=== PATIENT | female | born 1965 | race Caucasian/White ===

== ENCOUNTER 2023-11-19 12:06 | Day surgery (SDC) | payer MEDICARE, OTHER ==
[~2023-11-19] VITALS: Ht 162.6 cm; Wt 72.0 kg
[~2023-11-19 12:06] MED LIST: BECL10.6 INH; DICY10CA88 PO; DULO-31 PO; HYDR-3972; IBUP-1985 PO; LORA10TA7 PO; MELO-102 PO; METO25TA6 PO; MULT-1085 PO; PANT40TA54 PO; TIZA-205 PO; TRAZ-256 PO; [UNRECOGNIZED DRUG - CODE]
[2023-11-19] MEDS ORDERED: morphine 10mg/ml inj. ONE (13:19)
[2023-11-19] MEDS ORDERED: midazolam 1 mg/ML 2ml injection ONE (13:19)
[2023-11-19 13:24] VITALS: BP 142/82; PULSE 73; RESP 12
[2023-11-19 13:50] VITALS: BP 97/58; PULSE 82; RESP 14; O2SAT 94
[2023-11-19 14:00] VITALS: BP 106/52; PULSE 66; RESP 14; O2SAT 94
[2023-11-19 14:10] VITALS: BP 101/56; PULSE 69; RESP 14; O2SAT 95
[2023-11-19 14:20] VITALS: BP 115/72; PULSE 71; RESP 14; O2SAT 95
== END 2023-11-19 14:20 | disposition home or self-care (01) ==
LOC: GI LAB 12:06
PROVIDERS: ATTEND Internal Medicine Gastroenterology
DX: R13.10 Dysphagia, unspecified (principal); K31.89 Other diseases of stomach and duodenum; I10 Essential (primary) hypertension; J45.909 Unspecified asthma, uncomplicated
CPT/HCPCS: 43239; A4620; J2250; J2270; J7030; Z7512; 88305; J2274